=== PATIENT | female | born 1940 | race Caucasian/White ===

== ENCOUNTER 2025-01-06 22:12 | Inpatient (IN) | payer MEDICARE ==
[~2025-01-06] VITALS: Ht 167.6 cm; Wt 59.4 kg
[2025-01-06 22:38] LABS: BASOPHILS # (AUTO) 0.1 K/UL (0.0-0.2); BASOPHILS % (AUTO) 2.8 % (0.0-2.0); EOSINOPHILS % (AUTO) 0.8 % (0.0-7.0); HEMATOCRIT 27.6 % (31.2-41.9); HEMOGLOBIN 9.7 g/dL (10.9-14.3); LYMPHOCYTES # (AUTO) 0.3 K/uL (0.8-4.8); LYMPHOCYTES % (AUTO) 10.1 % (20.5-51.5); MEAN CORPUSCULAR HEMOGLOBIN 37.7 uug (24.7-32.8); MEAN CORPUSCULAR HGB CONC 35 g/dL (32.3-35.6); MEAN CORPUSCULAR VOLUME 107.1 fL (75.5-95.3); MONOCYTES # (AUTO) 0.2 K/uL (0.1-1.30); MONOCYTES % (AUTO) 6.8 % (0.0-11.0); NEUTROPHILS # (AUTO) 2.5 K/uL (1.8-8.9); NEUTROPHILS % (AUTO) 79.5 % (38.5-71.5); PLATELET COUNT (AUTO) 154 K/uL (179-408); RED BLOOD CELL COUNT(AUTO) 2.58 MIL/uL (3.63-4.92); RED CELL DISTRIBUTION WIDTH 14.5 % (12.3-17.7); WHITE BLOOD COUNT (AUTO) 3.2 K/uL (3.8-11.8)
[2025-01-06 22:42] LABS: DIFFERENTIAL COMMENT 1
[2025-01-06 22:48] LABS: CALCIUM 8.4 mg/dL (8.5-10.1); CARBON DIOXIDE 23 mmol/L (21-32); CHLORIDE 104 mmol/L (98-107); CREATININE 0.9 mg/dL (0.6-1.3); GLUCOSE 143 mg/dL (74-106); POTASSIUM 3.9 mmol/L (3.5-5.1); SODIUM SERUM 138 mmol/L (136-145); UREA NITROGEN, BLOOD 19 mg/dL (7-18)
[2025-01-06 22:53] LABS: ALANINE AMINOTRANSFERASE 28 U/L (14-59); ALBUMIN 3.1 g/dL (3.4-5.0); ALKALINE PHOSPHATASE 76 U/L (50-136); ASPARTATE AMINOTRANSFERASE 20 U/L (15-37); BILIRUBIN,TOTAL 0.6 mg/dL (0.2-1.0); MAGNESIUM 2.1 mg/dL (1.8-2.4); TOTAL PROTEIN, SERUM 7.1 g/dL (6.4-8.2)
[2025-01-06 22:55] LABS: C-REACTIVE PROTEIN 2.56 mg/dL (0.00-0.30)
[2025-01-06] MEDS ORDERED: OXYCODONE HCL 5 MG TABLET ONE ×2 (23:19→23:53)
[2025-01-06] MEDS: OXYCODONE HCL 5 MG TABLET PO ONE ×2 (23:22→23:58)
[2025-01-07] MEDS ORDERED: REMEDY ESSENTIAL ZINC PASTE 113 GM TP PRN (00:45)
[2025-01-07] MEDS ORDERED: ONDANSETRON 4 MG/2 ML VIAL IV PRN (00:45)
[2025-01-07] MEDS ORDERED: ACETAMINOPHEN 325 MG TABLET PO PRN (00:45)
[2025-01-07] MEDS ORDERED: MAGNESIUM HYDROXIDE 30 ML LIQUID UDC PO PRN (00:45)
[2025-01-07 04:45] VITALS: BP 133/76; TEMP 98.3; O2SAT 95
[2025-01-07 07:38] VITALS: BP 115/65; TEMP 98.4; O2SAT 99
[2025-01-07] MEDS ORDERED: MIRT7.5T10 PO (09:46)
[2025-01-07] MEDS ORDERED: OXYC5TAB3 PO ×2 (09:46)
[2025-01-07] MEDS ORDERED: SENN-301 PO (09:46)
[2025-01-07] MEDS ORDERED: ABEM150T PO (09:46)
[2025-01-07] MEDS ORDERED: CEPH500C2 PO (09:46)
[2025-01-07] MEDS ORDERED: SERT25TA PO (09:46)
[2025-01-07] MEDS ORDERED: ONDA4TAB5 PO (09:46)
[2025-01-07 11:06] VITALS: BP 109/63; TEMP 98.6; O2SAT 93
[2025-01-07 14:47] VITALS: BP 114/69; TEMP 97.6; O2SAT 100
[2025-01-07] MEDS ORDERED: ONDANSETRON HCL 4 MG TABLET PO PRN (18:15)
[2025-01-07] MEDS ORDERED: OXYCODONE HCL 5 MG TABLET PO PRN (18:15)
[2025-01-07] MEDS: MIRTAZAPINE 15 MG TABLET PO SCH (21:07)
[2025-01-07 23:31] VITALS: O2SAT 100
[2025-01-08 04:36] VITALS: BP 154/83; TEMP 98.4; O2SAT 97
[2025-01-08] MEDS: CEphaleXIN 500 MG CAPSULE PO SCH (05:57)
[2025-01-08 07:38] VITALS: BP 140/79; TEMP 98; O2SAT 100
[2025-01-08 07:39] LABS: BASOPHILS # (AUTO) 0.1 K/UL (0.0-0.2); DIFFERENTIAL COMMENT 0; EOSINOPHILS # (AUTO) 0.1 K/uL (0.0-0.7); EOSINOPHILS % (AUTO) 4.3 % (0.0-7.0); HEMATOCRIT 24.7 % (31.2-41.9); HEMOGLOBIN 8.4 g/dL (10.9-14.3); LYMPHOCYTES # (AUTO) 0.3 K/uL (0.8-4.8); LYMPHOCYTES % (AUTO) 12.7 % (20.5-51.5); MEAN CORPUSCULAR HEMOGLOBIN 36.8 uug (24.7-32.8); MEAN CORPUSCULAR HGB CONC 34 g/dL (32.3-35.6); MEAN CORPUSCULAR VOLUME 107.4 fL (75.5-95.3); MONOCYTES # (AUTO) 0.3 K/uL (0.1-1.30); MONOCYTES % (AUTO) 13.2 % (0.0-11.0); NEUTROPHILS # (AUTO) 1.5 K/uL (1.8-8.9); NEUTROPHILS % (AUTO) 66.8 % (38.5-71.5); PLATELET COUNT (AUTO) 139 K/uL (179-408); RED CELL DISTRIBUTION WIDTH 14.5 % (12.3-17.7); WHITE BLOOD COUNT (AUTO) 2.2 K/uL (3.8-11.8)
[2025-01-08 07:40] LABS: CALCIUM 8.1 mg/dL (8.5-10.1); CARBON DIOXIDE 27 mmol/L (21-32); CHLORIDE 106 mmol/L (98-107); CREATININE 0.6 mg/dL (0.6-1.3); GLUCOSE 102 mg/dL (74-106); MAGNESIUM 2.2 mg/dL (1.8-2.4); PHOSPHOROUS 2.5 mg/dL (2.5-4.9); POTASSIUM 4.1 mmol/L (3.5-5.1); SODIUM SERUM 140 mmol/L (136-145); UREA NITROGEN, BLOOD 18 mg/dL (7-18)
[2025-01-08] MEDS: ENSURE ENLIVE (VAN) 240 ML LIQUID PO SCH (09:27)
[2025-01-08] MEDS: SENNOSIDES/DOCUSATE SODIUM TABLET PO SCH (09:28)
[2025-01-08] MEDS: SERTRALINE HCL 50 MG TABLET PO SCH (09:28)
[2025-01-08 10:55] VITALS: BP 105/66; TEMP 97.3; O2SAT 100
[2025-01-08] MEDS: OXYCODONE HCL 5 MG TABLET PO PRN (11:35)
[2025-01-08] MEDS: MORPHINE SULFATE 2 MG/1 ML DISP.SYRIN IV ONE (11:35)
[2025-01-08] MEDS: MORPHINE SULFATE 2 MG/1 ML DISP.SYRIN IV PRN (14:48)
[2025-01-08 16:31] VITALS: BP 133/78; TEMP 98.2; O2SAT 98
[2025-01-08] MEDS: KETOROLAC TROMETHAMINE 30 MG INJ IVP ONE (17:19)
[2025-01-08 17:42] VITALS: O2SAT 95
[2025-01-08 20:35] VITALS: BP 120/60; TEMP 98.4; O2SAT 95
[2025-01-09] VITALS (8 sets, daily range): BP systolic 101–154; BP diastolic 63–86; TEMP 98–98.6; O2SAT 90–99
[2025-01-09] MEDS ORDERED: KETOROLAC TROMETHAMINE 15 MG INJ IVP PRN (14:45)
[2025-01-09] MEDS: CELECOXIB 100 MG CAPSULE PO SCH (18:45)
[2025-01-09] MEDS: KETOROLAC TROMETHAMINE 15 MG INJ IVP ONE (19:00)
[2025-01-10] VITALS (7 sets, daily range): BP systolic 108–150; BP diastolic 53–74; TEMP 97.6–98.2; O2SAT 94–100
[2025-01-10] MEDS: PANTOPRAZOLE SODIUM 40 MG TABLET.DR PO SCH (06:26)
[2025-01-10] MEDS ORDERED: ZOLPIDEM 5 MG TABLET PO PRN (15:00)
[2025-01-11 00:38] VITALS: BP 139/71; TEMP 97.8; O2SAT 93
[2025-01-11 04:33] VITALS: BP 110/65; TEMP 97.8; O2SAT 96
[2025-01-11 07:55] VITALS: BP 114/57; TEMP 97.7; O2SAT 96
[2025-01-11 11:44] VITALS: BP 147/78; TEMP 97.8; O2SAT 98
== END 2025-01-11 13:50 | DRG 199 ==
LOC: ER 22:12 → TELE3 01-07 00:40
PROVIDERS: ADMIT Student in an Organized Health Care Education/Training Program; ATTEND Nurse Practitioner Acute Care
PROC: 0W9B30Z Drainage of Left Pleural Cavity with Drainage Device, Percutaneous Approach (ICD-10-PCS; principal; 2025-01-07)
DX: J95.811 Postprocedural pneumothorax (principal); D61.810 Antineoplastic chemotherapy induced pancytopenia; S22.059A Unspecified fracture of T5-T6 vertebra, initial encounter for closed fracture; C79.51 Secondary malignant neoplasm of bone; I31.39 Other pericardial effusion (noninflammatory); J90 Pleural effusion, not elsewhere classified; Z95.0 Presence of cardiac pacemaker; R79.89 Other specified abnormal findings of blood chemistry; C50.911 Malignant neoplasm of unspecified site of right female breast; Z79.899 Other long term (current) drug therapy; Z92.21 Personal history of antineoplastic chemotherapy; Z90.11 Acquired absence of right breast and nipple; X58.XXXA Exposure to other specified factors, initial encounter; Y92.89 Other specified places as the place of occurrence of the external cause; I44.7 Left bundle-branch block, unspecified; I51.7 Cardiomegaly; Z98.890 Other specified postprocedural states; R09.02 Hypoxemia
CPT/HCPCS: 36415; 71045; 71250; 83735; 84100; 84484; 85025; 85651; 86140; 93307; A4663; G0378; J1885; J2270